=== PATIENT | female | born 1980 | race Caucasian/White ===

== ENCOUNTER 2019-04-28 11:56 | Emergency (ER) | payer OTHER ==
[~2019-04-28] VITALS: Ht 172.7 cm; Wt 124.7 kg
[~2019-04-28 11:56] MED LIST: ACETAMINOPHEN-1 EAC1 PO; ADVAIR 250-501 EACH; COMBIVENT INH; IBUPROFEN 600600 M1 PO; IBUPROFEN 800800 M1 PO; IBUPROFEN 800800 MG PO; MACROBID 100 M100 M1 PO; MEDROL DOSPAK21 TAB PO; NAPROSYN500 MG PO; NORCO 5-325 TA1 EACH PO; PHENERGAN 25 MG25 M1 PO; PHENTERMINE H37.5 MG PO; PREDNISONE 10 M10 MG PO; PREDNISONE50 MG PO; PROAIR HFA8.5 GM; PROAIR HFA8.5 GM IH; PROAIR RESPICL90 MCG INH; PROTONIX40 MG PO; PROVENTIL HFA6.7 G1 INH; SYMBICORT160 MCG/4. INH; ULTRAM 50MG TAB50 MG PO; VALIUM2 MG PO; VENTOLIN HFA INH8 GM IH; VICODIN 5-5001 EACH PO
[2019-04-28] MEDS ORDERED: TESSALON PERLE100 MG PO (13:27)
[2019-04-28 13:45] VITALS: BP 125/74
== END 2019-04-28 13:45 | disposition home or self-care (01) ==
LOC: ER 11:56
DX: J11.1 Influenza due to unidentified influenza virus with other respiratory manifestations (principal); J45.909 Unspecified asthma, uncomplicated; Z98.890 Other specified postprocedural states